=== PATIENT | male | born 1965 | race Caucasian/White ===

== ENCOUNTER 2017-08-30 17:21 | Observation (INO) | payer OTHER ==
--- NOTE | 2017-08-30 17:32 | PDOC ---
History of Present Illness - History of Present Illness Initial Comments: 08/30/17 17:54 The patient is a 51 year old male, with a significant past medical history of hyperlipidemia, who presents to the emergency department with erythematous right hand since Saturday. Patient states that he noticed that the dorsal side of his right hand became red and began to swell beginning on Saturday. He denies injury to the right hand. He does have a small blistered wound on his pinky finger that he admits to picking at. He came into the emergency room today because he noticed that the redness and swelling worsened. He did not make an appt to see his PCP. He states he is right hand dominant. He denies any recent fevers, chills, headache or dizziness. He denies any recent nausea, vomit, diarrhea.He denies any recent chest pain or shortness of breath. He denies any recent dysuria, frequency, urgency or hematuria. Allergies: NKDA Past surgical history: None reported. Social History: Former smoker. Primary Care Physician: Jase Lin <Halie Hager - Last Filed: 08/30/17 18:50> <Jennifer Prasad - Last Filed: 08/30/17 18:55> - General Chief Complaint: Redness To Affected Area Stated Complaint: REDNESS OF RIGHT HAND Time Seen by Provider: 08/30/17 17:31 Past History <Halie Hager - Last Filed: 08/30/17 18:50> <Jennifer Prasad - Last Filed: 08/30/17 18:55> - Past Medical History Allergies/Adverse Reactions: Allergies Allergy/AdvReac Type Severity Reaction Status Date / Time No Known Allergies Allergy Verified 08/30/17 17:39 Home Medications: Ambulatory Orders Gemfibrozil [Lopid] 600 mg PO BID 08/30/17 Simvastatin 20 mg PO DAILY 08/30/17 Review of Systems - Review of Systems Comments:: 08/30/17 17:54 GENERAL/CONSTITUTIONAL: No fever or chills. No weakness. HEAD, EYES, EARS, NOSE AND THROAT: No change in vision. No ear pain or discharge. No sore throat. GASTROINTESTINAL: No nausea, vomiting, diarrhea or constipation. GENITOURINARY: No dysuria, frequency, or change in urination. CARDIOVASCULAR: No chest pain or shortness of breath. RESPIRATORY: No cough, wheezing, or hemoptysis. MUSCULOSKELETAL: No joint or muscle swelling or pain. No neck or back pain. SKIN: + erythema to right hand and forearm. +swelling to right hand. + small blistered wound on pinky finger. NEUROLOGIC: No headache, vertigo, loss of consciousness, or change in strength/ sensation. ENDOCRINE: No increased thirst. No abnormal weight change. HEMATOLOGIC/LYMPHATIC: No anemia, easy bleeding, or history of blood clots. ALLERGIC/IMMUNOLOGIC: No hives or skin allergy. <Halie Hager - Last Filed: 08/30/17 18:50> *Physical Exam - Vital Signs Last Vital Signs Temp Pulse Resp BP Pulse Ox 97.7 F 88 15 134/78 99 08/30/17 17:27 08/30/17 17:27 08/30/17 17:27 08/30/17 17:27 08/30/17 17:27 - Physical Exam Comments: 08/30/17 17:54 GENERAL: Obese. Awake, alert, and fully oriented, in no acute distress HEAD: No signs of trauma EYES: PERRLA, EOMI, sclera anicteric, conjunctiva clear ENT: Auricles normal inspection, hearing grossly normal, nares patent, oropharynx clear without exudates. Moist mucosa NECK: Normal ROM, supple, no lymphadenopathy, JVD, or masses LUNGS: Breath sounds equal, clear to auscultation bilaterally. No wheezes, and no crackles HEART: Regular rate and rhythm, normal S1 and S2, no murmurs, rubs or gallops ABDOMEN: Soft, nontender, normoactive bowel sounds. No guarding, no rebound. No masses EXTREMITIES: Normal range of motion, no edema. No clubbing or cyanosis. No cords, erythema, or tenderness NEUROLOGICAL: Cranial nerves II through XII grossly intact. Normal speech, normal gait SKIN: Right hand erythema over dorsal aspect. Lymphangitic spread to right forearm of the way up. Small ulceration to the right 5th mcp without and purulent drainage. Right hand hot, tender, but full ROM. Brisk cap refill. Sensation intact. <Halie Hager - Last Filed: 08/30/17 18:50> Heart Score/ECG Review - ECG Intrepretation Comment:: 08/30/17 18:47 sinus at 82, nl axis, nl interval, no acute st/t wave findings <Jennifre Prasad - Last Filed: 08/30/17 18:55> ED Treatment Course - LABORATORY CBC & Chemistry Diagram: 08/30/17 17:50 08/30/17 17:50 <Halie Hager - Last Filed: 08/30/17 18:50> - LABORATORY CBC & Chemistry Diagram: 08/30/17 17:50 08/30/17 17:50 <Jennifer Prasad - Last Filed: 08/30/17 18:55> Medical Decision Making - Medical Decision Making 08/30/17 17:43 a/p: 51yo male with R hand cellulitis -redness since saturday now with lymphangitic spread -ulceration to MTP of pinky - crusted over, no purulent drainage -hot -labs -xray -iv abx -observation for repeat eval and iv abx 08/30/17 18:54 pt updated on labs and imaging. Pt pending lactate pt willing to stay for iv abx and observation microblog sent to the hospitalist awaiting call back from MUSIC COORDINATOR 08/30/17 18:55 pt will be signed out to the oncoming ED physician pending placement and accepting physician <Jennifer Prasad - Last Filed: 08/30/17 18:55> *DC/Admit/Observation/Transfer - Attestations Scribe Attestion: 08/30/17 17:55 Documentation prepared by Halie Hager, acting as certified medical coder for Jennifer Prasad DO. <Halie Hager - Last Filed: 08/30/17 18:50> - Attestations Physician Attestion: 08/30/17 17:32 I, Dr. Jennifer Prasad DO, attest that this document has been prepared under my direction and personally reviewed by me in its entirety. I further attest, that it accurately reflects all work, treatment, procedures and medical decision -making performed by me. <Jennifer Prasad - Last Filed: 08/30/17 18:55> Diagnosis at time of Disposition: Cellulitis of right hand - Discharge Dispostion Condition at time of disposition: Fair
[2017-08-30] MEDS ORDERED: DIPHTH,PERTUSS(ACELL),TET 0.5 ML DISP.SYRIN IM ONE (17:41)
[2017-08-30] MEDS ORDERED: SODIUM CHLORIDE 0.9% 1000 ML INFUS.BAG IV ONE (17:42)
[2017-08-30] MEDS ORDERED: CLINDAMYCIN 600MG PREMIX IVPB 600 MG/50 ML BAG IVPB ONE (17:42)
[2017-08-30] MEDS ORDERED: CLINDAMYCIN PHOSPHATE 600 MG/4 ML VIAL ONE (18:00)
[2017-08-30 18:09] LABS: BASOPHIL 3.3 % (0-2.0); EOSINOPHIL 1.1 % (0-4.5); MCH 31.1 pg (25.7-33.7); MEAN CELL VOLUME 91.2 fl (80-96); MEAN PLT VOLUME 9.8 fl (7.5-11.1); NEUTROPHILS 65.7 % (42.8-82.8); PLATELET COUNT 205 K/MM3 (134-434)
[2017-08-30 18:31] LABS: ALBUMIN 4.2 g/dl (3.5-5.0); ALK PHOS 63 U/L (32-92); ANION GAP 8 (8-16); BILIRUBIN,TOTAL 0.7 mg/dl (0.2-1.0); CALCIUM 9.1 mg/dl (8.4-10.2); CO2 25 mmol/L (22-28); CREATININE 0.8 mg/dl (0.6-1.3); GLUCOSE,RANDOM 130 mg/dl (74-106); SGOT/AST 15 U/L (10-42); SGPT/ALT 29 U/L (10-40); TOT PROT 6.7 g/dl (6.4-8.3)
[2017-08-30 21:00] VITALS: BMI 41.3
[2017-08-30] MEDS ORDERED: ACETAMINOPHEN 500 MG TABLET (FP) PO PRN (21:38)
--- NOTE | 2017-08-30 23:02 | HP ---
CHIEF COMPLAINT: Right hand pain, redness, swelling PCP: Jase Lin HISTORY OF PRESENT ILLNESS: This is a 51 year old male with a past medical history of hyperlipidemia who presented to the ED with a 5-7 day history of redness, pain and swelling to his right hand. He states that it started sometime [place] or over the weekend. Initially there was some swelling to the area above the 3rd and 4th metacarpal space but it spread towards the ulnar aspect of the hand and a blister appeared on the side of the hand. The swelling and redness continued to get worse and finally today the pain became unbearable and he presented to the ED. ER course was notable for: (1) WBC 18.0 Recent Travel: pt denies PAST MEDICAL HISTORY: hyperlipidemia PAST SURGICAL HISTORY: appendectomy 2012 Social History: Smoking: pt denies Alcohol: pt denies Drugs: pt denies Family History: mother alive and well, no medical problems father unk no siblings 1 child with epilepsy 1 child healthy Allergies No Known Allergies Allergy (Verified 08/30/17 17:39) HOME MEDICATIONS: 3 Medication Instructions Recorded Gemfibrozil [Lopid] 600 mg PO BID 08/30/17 Simvastatin 20 mg PO DAILY 08/30/17 REVIEW OF SYSTEMS CONSTITUTIONAL: Absent: fever, chills, diaphoresis, generalized weakness, malaise, loss of appetite, weight change HEENT: Absent: rhinorrhea, nasal congestion, throat pain, throat swelling, difficulty swallowing, mouth swelling, ear pain, eye pain, visual changes CARDIOVASCULAR: Absent: chest pain, syncope, palpitations, irregular heart rate, lightheadedness , peripheral edema RESPIRATORY: Absent: cough, shortness of breath, dyspnea with exertion, orthopnea, wheezing, stridor, hemoptysis GASTROINTESTINAL: Absent: abdominal pain, abdominal distension, nausea, vomiting, diarrhea, constipation, melena, hematochezia GENITOURINARY: Absent: dysuria, frequency, urgency, hesitancy, hematuria, flank pain, genital pain MUSCULOSKELETAL: Absent: myalgia, arthralgia, joint swelling, back pain, neck pain SKIN: Present: Pain/swelling/redness to right hand Absent: rash, itching, pallor HEMATOLOGIC/IMMUNOLOGIC: Absent: easy bleeding, easy bruising, lymphadenopathy, frequent infections ENDOCRINE: Absent: unexplained weight gain, unexplained weight loss, heat intolerance, cold intolerance NEUROLOGIC: Absent: headache, focal weakness or paresthesias, dizziness, unsteady gait, seizure, mental status changes, bladder or bowel incontinence PSYCHIATRIC: Absent: anxiety, depression, suicidal or homicidal ideation, hallucinations. PHYSICAL EXAMINATION Vital Signs - 24 hr 3 08/30/17 08/30/17 08/30/17 17:27 20:27 20:51 Temperature 97.7 F 97.7 F 97.9 F Pulse Rate 88 78 81 Respiratory 15 15 20 Rate Blood Pressure 134/78 130/68 126/73 O2 Sat by Pulse 99 100 Oximetry (%) GENERAL: Awake, alert, and fully oriented, in no acute distress. HEAD: Normal with no signs of trauma. EYES: Pupils equal, round and reactive to light, extraocular movements intact, sclera anicteric, conjunctiva clear. No lid lag. EARS, NOSE, THROAT: Ears normal, nares patent, oropharynx clear without exudates. Moist mucous membranes. NECK: Normal range of motion, supple without lymphadenopathy, JVD, or masses. LUNGS: Breath sounds equal, clear to auscultation bilaterally. No wheezes, and no crackles. No accessory muscle use. HEART: Regular rate and rhythm, normal S1 and S2 without murmur, rub or gallop. ABDOMEN: Soft, nontender, not distended, normoactive bowel sounds, no guarding, no rebound, no masses. No hepatomegaly or splenomegaly. MUSCULOSKELETAL: Normal range of motion at all joints. No bony deformities or tenderness. No CVA tenderness. UPPER EXTREMITIES: 2+ pulses, warm, well-perfused. No cyanosis. No clubbing. No peripheral edema. LOWER EXTREMITIES: 2+ pulses, warm, well-perfused. No calf tenderness. No peripheral edema. NEUROLOGICAL: Cranial nerves II-XII intact. Normal speech. Normal gait. PSYCHIATRIC: Cooperative. Good eye contact. Appropriate mood and affect. SKIN: Warm, dry, normal turgor, no rashes, normal capillary refill. right hand with generalized swelling and erythema, erythema does not appear to be tracking up arm proximally any longer and pt believes it has improved. + blister to ulnar side of hand, + oozing serosanguinous discharge. Laboratory Results - last 24 hr 3 08/30/17 08/30/17 08/30/17 17:50 17:50 17:50 WBC 18.0 H RBC 5.47 Hgb 17.0 H Hct 49.9 H MCV 91.2 MCH 31.1 MCHC 34.0 RDW 13.0 Plt Count 205 MPV 9.8 Neutrophils % 65.7 Lymphocytes % 22.9 Monocytes % 7.0 Eosinophils % 1.1 Basophils % 3.3 H Sodium 136 Potassium 3.9 Chloride 103 Carbon Dioxide 25 Anion Gap 8 BUN 21 H Creatinine 0.8 Creat Clearance w eGFR > 60 Random Glucose 130 H Lactic Acid 1.4 Calcium 9.1 Total Bilirubin 0.7 AST 15 ALT 29 Alkaline Phosphatase 63 Total Protein 6.7 Albumin 4.2 Radiology Reports hand xray without obvious free air, foreign body or bony deformity, official read pending chest xray without obvious infiltrate or effusion, official read pending ASSESSMENT/PLAN: 51yM with PMH HLD presented with cellulits R hand. Cellulitis R hand - cont clindamycin 600mg Q6h - bactroban and DPD to open sore - repeat CBC in am HLD - cont home lopid, home zocor changed to formulary lipitor DVT PPX - chemoprophylaxis deferred as expected LOS <48h FEN - pt tolerating po - BMP in am - regular diet Dispo: pt currently requires inpatient monitoring for management of his emergent condition. Visit type - Emergency Visit Emergency Visit: Yes ED Registration Date: 08/30/17 Care time: The patient presented to the Emergency Department on the above date and was hospitalized for further evaluation of their emergent condition. - New Patient This patient is new to me today: Yes Date on this admission: 08/30/17 - Critical Care Critical Care patient: No
[2017-08-30] MEDS: IBUPROFEN 600 MG TABLET (FP) PO PRN (23:19)
[2017-08-30] MEDS: CLINDAMYCIN 600MG PREMIX IVPB 600 MG/50 ML BAG IVPB SCH (23:49)
[2017-08-31] MEDS: CLINDAMYCIN 600MG PREMIX IVPB 600 MG/50 ML BAG IVPB SCH ×4 (06:16→23:13)
[2017-08-31 08:22] LABS: BASOPHIL 0.4 % (0-2.0); EOSINOPHIL 2.1 % (0-4.5); MCH 30.6 pg (25.7-33.7); MCHC 33.4 g/dl (32.0-35.9); MEAN CELL VOLUME 91.6 fl (80-96); MEAN PLT VOLUME 9.6 fl (7.5-11.1); NEUTROPHILS 56.6 % (42.8-82.8); PLATELET COUNT 153 K/MM3 (134-434); RDW 13.3 % (11.9-15.9); WHITE BLOOD COUNT 10.9 K/mm3 (4.0-10.8)
[2017-08-31 08:55] LABS: ANION GAP 5 (8-16); CALCIUM 8.7 mg/dl (8.4-10.2); CO2 25 mmol/L (22-28); CREATININE 0.8 mg/dl (0.6-1.3); GLUCOSE,RANDOM 112 mg/dl (74-106); PHOSPHOROUS 4.5 mg/dl (2.5-4.6)
[2017-08-31] MEDS ORDERED: PT OWN MED DRAWER 7, Y5N ONE ×2 (10:17→21:17)
--- NOTE | 2017-08-31 10:21 | PN ---
Physical Exam: SUBJECTIVE: Patient seen and examined at the bedside. He state that his hand is still swollen and not much improved since admission. He has cats but denies any animal bite. He is unsure why or how his hands became swollen. Has 5/10 pain on right hand on exam. OBJECTIVE: WBC improving, denies any trauma/animal bites Vital Signs Period Temp Pulse Resp BP Sys/Robles Pulse Ox Last 24 Hr 97.7 F-98.8 F 73-88 15-20 121-134/68-78 99-100 GENERAL: The patient is awake, alert, and fully oriented, in no acute distress. HEAD: Normal with no signs of trauma. EYES: PERRL, extraocular movements intact, sclera anicteric, conjunctiva clear. No ptosis. ENT: Ears normal, nares patent, oropharynx clear without exudates, moist mucous membranes. NECK: Trachea midline, full range of motion, supple. LUNGS: Breath sounds equal, clear to auscultation bilaterally, no wheezes HEART: Regular rate and rhythm ABDOMEN: Soft, obese abdomen, no abdominal pain, + bowel sounds EXTREMITIES: Right hand cellulitis, Painful, edema on entire hand with minimal streaking on anterior aspect of hand, limited ROM 2/2 to pain NEUROLOGICAL:Normal speech, gait not observed. PSYCH: Normal mood, normal affect. Laboratory Results - last 24 hr 08/30/17 08/30/17 08/30/17 17:50 17:50 17:50 WBC 18.0 H RBC 5.47 Hgb 17.0 H Hct 49.9 H MCV 91.2 MCH 31.1 MCHC 34.0 RDW 13.0 Plt Count 205 MPV 9.8 Neutrophils % 65.7 Lymphocytes % 22.9 Monocytes % 7.0 Eosinophils % 1.1 Basophils % 3.3 H Sodium 136 Potassium 3.9 Chloride 103 Carbon Dioxide 25 Anion Gap 8 BUN 21 H Creatinine 0.8 Creat Clearance w eGFR > 60 Random Glucose 130 H Lactic Acid 1.4 Calcium 9.1 Phosphorus Magnesium Total Bilirubin 0.7 AST 15 ALT 29 Alkaline Phosphatase 63 Total Protein 6.7 Albumin 4.2 08/31/17 08/31/17 07:23 07:23 WBC 10.9 H D RBC 5.08 Hgb 15.6 Hct 46.6 MCV 91.6 MCH 30.6 MCHC 33.4 RDW 13.3 Plt Count 153 D MPV 9.6 Neutrophils % 56.6 Lymphocytes % 33.8 D Monocytes % 7.1 Eosinophils % 2.1 D Basophils % 0.4 Sodium 137 Potassium 4.4 Chloride 107 Carbon Dioxide 25 Anion Gap 5 L BUN 23 H Creatinine 0.8 Creat Clearance w eGFR Random Glucose 112 H Lactic Acid Calcium 8.7 Phosphorus 4.5 Magnesium 2.0 Total Bilirubin AST ALT Alkaline Phosphatase Total Protein Albumin Active Medications Generic Name Dose Route Start Last Admin Trade Name Freq PRN Reason Stop Dose Admin Acetaminophen 1,000 mg 08/30/17 21:38 Tylenol - PO Q6H PRN FEVER OR PAIN Atorvastatin Calcium 10 mg 08/31/17 22:00 Lipitor - PO HS ANNA Gemfibrozil 600 mg 08/31/17 10:00 Lopid - PO BID ANNA Clindamycin Phosphate 600 mg in 50 mls @ 100 mls/hr 08/31/17 00:00 08/31/17 06:16 Cleocin 600 Mg Premix Ivpb - IVPB 100 mls/hr Q6H ANNA Administration Ibuprofen 600 mg 08/30/17 22:49 08/30/17 23:19 Motrin - PO 600 mg Q6H PRN Administration FEVER Mupirocin 1 applic 08/31/17 10:00 Bactroban 2% Ointment - TP BID ANNA ASSESSMENT/PLAN: Patient is a 51 year old male with a significant past medical history of hyperlipidemia. He presented to the ER on 08/30/2017 with c/o of redness, swelling and pain to his right hand for approximately 1 week. He states that initially he had some swelling above the 3rd and 4th metacarpal space but it his entire hand became more swollen and painful and a blister appeared on the right side of his hand. His hand pain became worse which prompted him to come into the ER. Imaging: Right hand xray: some swelling seen on imaging, no fracture or subluxation. Loss of bone density. No foreign body or soft tissue air. ID: Right Hand Cellulitis, acute Unknown cause ROM limited, still having pain, no streaking noted Patient states symptoms not yet improved WBC 18>10 Denies animal bites, has a cat a home Denies any trauma Hand xray as above On Clindamycin q6 No drainage of hand noted Plan: Elevated hand above heart level Manage pain with Motrin q6, Tylenol If streaking or if no improvement, consider switching antibiotics ID consulted Blood cultures ordered Monitor labs, pain, vitals F.E.N. Fluids: tolerating PO Electrolytes: monitor Nutrition: regular diet Prophylaxis: DVT: ambulatory GI: deferred Disposition: full code. Visit type - Emergency Visit Emergency Visit: Yes ED Registration Date: 08/30/17 Care time: The patient presented to the Emergency Department on the above date and was hospitalized for further evaluation of their emergent condition. - New Patient This patient is new to me today: Yes Date on this admission: 08/31/17 - Critical Care Critical Care patient: No - Discharge Referral Referred to [facility] No
[2017-08-31] MEDS: IBUPROFEN 600 MG TABLET (FP) PO PRN ×2 (10:23→19:24)
[2017-08-31] MEDS: GEMFIBROZIL 600 MG TABLET (FP) PO SCH ×2 (10:23→21:25)
[2017-08-31] MEDS: LACTOBACILLUS ACIDOPHILUS 1 EACH TAB (FP) PO SCH (15:00)
--- NOTE | 2017-08-31 15:02 | PN ---
Progress Note (short form) - Note Progress Note: ID consult dictated a/p hand cellulitis he also has several 1 cm subcutaneous abscess on his abdomen he describes these as chronic and recurrent obesity clindamycin seems to be working-would continue would add probiotic check [id number] ?outpt eval for [facility] d/w hospitalist Problem List - Problems (1) Cellulitis of right hand Code(s): L03.113 - CELLULITIS OF RIGHT UPPER LIMB (2) Obesity Code(s): E66.9 - OBESITY, UNSPECIFIED
[2017-08-31] MEDS ORDERED: IBUPROFEN 600 MG TABLET (FP) PO ONE (19:18)
[2017-08-31] MEDS: MUPIROCIN 2% TOPICAL OINTMENT 22 GM TUBE TP SCH ×2 (19:25→21:24)
[2017-08-31] MEDS: ATORVASTATIN CA 10 MG TABLET (FP) PO SCH (21:25)
[2017-09-01] MEDS: CLINDAMYCIN 600MG PREMIX IVPB 600 MG/50 ML BAG IVPB SCH ×4 (06:10→23:28)
[2017-09-01] MEDS ORDERED: PT OWN MED DRAWER 7, Y5N ONE ×2 (09:11→21:06)
[2017-09-01 09:30] LABS: BASOPHIL 0.2 % (0-2.0); EOSINOPHIL 2.8 % (0-4.5); MCH 30.9 pg (25.7-33.7); MCHC 33.2 g/dl (32.0-35.9); MEAN CELL VOLUME 93.1 fl (80-96); MEAN PLT VOLUME 9.6 fl (7.5-11.1); NEUTROPHILS 64.7 % (42.8-82.8); PLATELET COUNT 150 K/MM3 (134-434); RDW 13.4 % (11.9-15.9); WHITE BLOOD COUNT 9.9 K/mm3 (4.0-10.8)
[2017-09-01 09:31] LABS: ALBUMIN 3.6 g/dl (3.5-5.0); ALK PHOS 55 U/L (32-92); ANION GAP 10 (8-16); BILIRUBIN,TOTAL 0.8 mg/dl (0.2-1.0); CALCIUM 8.7 mg/dl (8.4-10.2); CO2 25 mmol/L (22-28); CREATININE 0.8 mg/dl (0.6-1.3); GLUCOSE,RANDOM 100 mg/dl (74-106); SGOT/AST 22 U/L (10-42); SGPT/ALT 39 U/L (10-40); TOT PROT 5.9 g/dl (6.4-8.3)
[2017-09-01] MEDS: LACTOBACILLUS ACIDOPHILUS 1 EACH TAB (FP) PO SCH (10:20)
[2017-09-01] MEDS: GEMFIBROZIL 600 MG TABLET (FP) PO SCH ×2 (10:20→21:13)
[2017-09-01] MEDS: MUPIROCIN 2% TOPICAL OINTMENT 22 GM TUBE TP SCH ×2 (10:21→21:13)
--- NOTE | 2017-09-01 10:40 | PN ---
Physical Exam: SUBJECTIVE: Patient seen and examined at the bedside. He states that he feels his hand edema is the same. OBJECTIVE: hmga1c pending Clinically the hand edema appears to be improving, ROM with some improvement Encouraged hand excercises as tolerated, elevation encouraged WBC 9.9, afebrile, vitals stable Vital Signs Period Temp Pulse Resp BP Sys/Robles Pulse Ox Last 24 Hr 97.6 F-98.0 F 74-87 16-18 114-133/73-81 97-99 GENERAL: The patient is awake, alert, and fully oriented, in no acute distress. HEAD: Normal with no signs of trauma. EYES: PERRL, extraocular movements intact, sclera anicteric, conjunctiva clear. No ptosis. ENT: Ears normal, nares patent, oropharynx clear without exudates, moist mucous membranes. NECK: Trachea midline, full range of motion, supple. LUNGS: Breath sounds equal, clear to auscultation bilaterally, no wheezes HEART: Regular rate and rhythm ABDOMEN: Soft, obese abdomen, no abdominal pain, + bowel sounds. <1cm abscess on right lower abdomen, pt states that these are chronic EXTREMITIES: Right hand cellulitis, less painful, improving edema on hand, no streaking on anterior aspect of hand or anywhere on right arm, improving ROM multiple non drainage small <1cm abscess on right lower abdomen, pt states that these are chronic NEUROLOGICAL:Normal speech, gait not observed. PSYCH: Normal mood, normal affect. Laboratory Results - last 24 hr 09/01/17 09/01/17 08:00 08:00 WBC 9.9 RBC 5.26 Hgb 16.3 Hct 49.0 MCV 93.1 MCH 30.9 MCHC 33.2 RDW 13.4 Plt Count 150 MPV 9.6 Neutrophils % 64.7 Lymphocytes % 24.6 D Monocytes % 7.7 Eosinophils % 2.8 Basophils % 0.2 Sodium 137 Potassium 4.0 Chloride 102 Carbon Dioxide 25 Anion Gap 10 BUN 19 H Creatinine 0.8 Creat Clearance w eGFR > 60 Random Glucose 100 Calcium 8.7 Total Bilirubin 0.8 AST 22 D ALT 39 D Alkaline Phosphatase 55 Total Protein 5.9 L Albumin 3.6 Active Medications Generic Name Dose Route Start Last Admin Trade Name Freq PRN Reason Stop Dose Admin Acetaminophen 1,000 mg 08/30/17 21:38 Tylenol - PO Q6H PRN FEVER OR PAIN Atorvastatin Calcium 10 mg 08/31/17 22:00 08/31/17 21:25 Lipitor - PO 10 mg HS ANNA Administration Gemfibrozil 600 mg 08/31/17 10:00 09/01/17 10:20 Lopid - PO 600 mg BID ANNA Administration Clindamycin Phosphate 600 mg in 50 mls @ 100 mls/hr 08/31/17 00:00 09/01/17 06:10 Cleocin 600 Mg Premix Ivpb - IVPB 100 mls/hr Q6H ANNA Administration Ibuprofen 600 mg 08/30/17 22:49 08/31/17 19:24 Motrin - PO 600 mg Q6H PRN Administration FEVER Lactobacillus Acidophilus 1 tab 08/31/17 15:00 09/01/17 10:20 Bacid - PO 1 tab DAILY ANNA Administration Mupirocin 1 applic 08/31/17 10:00 09/01/17 10:21 Bactroban 2% Ointment - TP 1 applic BID ANNA Administration ASSESSMENT/PLAN: Patient is a 51 year old male with a significant past medical history of hyperlipidemia. He presented to the ER on 08/30/2017 with c/o of redness, swelling and pain to his right hand for approximately 1 week. He states that initially he had some swelling above the 3rd and 4th metacarpal space but it his entire hand became more swollen and painful and a blister appeared on the right side of his hand. His hand pain became worse which prompted him to come into the ER. Imaging: Right hand xray: some swelling seen on imaging, no fracture or subluxation. Loss of bone density. No foreign body or soft tissue air. ID: Right Hand Cellulitis, improving Unknown cause WBC now 9.9, afebrile, less edema noted on hand, improving MEGHA, no streaking, vitals are stable WBC 18>9.9 Denies animal bites, has a cat a home Denies any trauma Hand xray as above On Clindamycin q6 IV No drainage of hand noted Plan: Elevated hand above heart level Manage pain with Motrin q6, Tylenol Hand edema improving on exam ID following Blood cultures ngtd Monitor labs, pain, vitals Endocrine: Rule out diabetes, hmga1c pending F.E.N. Fluids: tolerating PO Electrolytes: monitor Nutrition: regular diet Prophylaxis: DVT: ambulatory GI: deferred Disposition: full code. Visit type - Emergency Visit Emergency Visit: Yes ED Registration Date: 08/30/17 Care time: The patient presented to the Emergency Department on the above date and was hospitalized for further evaluation of their emergent condition. - New Patient This patient is new to me today: No - Critical Care Critical Care patient: No - Discharge Referral Referred to [facility] No
--- NOTE | 2017-09-01 12:37 | PN ---
Progress Note (short form) - Note Progress Note: hand about the same still some swelling and pain with closing the hand Vital Signs Period Temp Pulse Resp BP Sys/Robles Pulse Ox Last 24 Hr 97.6 F-98.0 F 74-87 16-18 114-133/73-81 97-99 now some fluctuance at the right lateral aspect- site of scab erythema and swelling of hand about the same forearm nontender, no erythema CBC, BMP 09/01/17 08:00 09/01/17 08:00 Laboratory Tests 09/01/17 08:00 Hemoglobin A1c % 6.9 H Microbiology 08/31/17 09:46 Blood - Peripheral Venous Blood Culture - Preliminary NO GROWTH OBTAINED AFTER 24 HOURS, INCUBATION TO CONTINUE FOR 4 DAYS. 08/31/17 09:46 Blood - Peripheral Venous Blood Culture - Preliminary NO GROWTH OBTAINED AFTER 24 HOURS, INCUBATION TO CONTINUE FOR 4 DAYS. a/p hand cellulitis he also has several 1 cm subcutaneous abscess on his abdomen he describes these as chronic and recurrent obesity consider hand surgery evaluation - ?small abscess under the scab continue clindamycin hand elevation Problem List - Problems (1) Cellulitis of right hand Code(s): L03.113 - CELLULITIS OF RIGHT UPPER LIMB (2) Obesity Code(s): E66.9 - OBESITY, UNSPECIFIED
--- NOTE | 2017-09-01 13:45 | CONSULT ---
Consult Consult Specialty:: Hand surgery Referred by:: Carolee Carreno Reason for Consultation:: Right hand pain and swelling - History of Present Illness Chief Complaint: Right hand pain and swelling History of Present Illness: 51 yo male Right hand dominant, PMH obesity, previous cutaneous abscess, presented to the ED with worsening pain and swelling in the right hand over the course of 7 days. He reports no trauma in hand. He noted the pain and redness appear spontaneously without a break in the skin. Pain, redness and swelling in the webspace between the middle and ring fingers, it spread towards the ulnar fingers an the same joints. When it began to extend into the wrist and forearm and become unbearable. We were asked to assess given the degree of improvement. - History Source History Provided By: Patient Limitations to Obtaining History: No Limitations - Past Medical History Dermatology: Yes: Cellulitis (h/o of MRSA cellulitis ) - Alcohol/Substance Use Hx Alcohol Use: Yes (RARE) - Smoking History Smoking history: Former smoker Have you smoked in the past 12 months: No If you are a former smoker, when did you quit?: 2013 - Social History Usual Living Arrangement: With Spouse Home Medications - Allergies Allergies/Adverse Reactions: Allergies Allergy/AdvReac Type Severity Reaction Status Date / Time No Known Allergies Allergy Verified 08/30/17 17:39 - Home Medications Home Medications: Ambulatory Orders Gemfibrozil [Lopid] 600 mg PO BID 08/30/17 Simvastatin 20 mg PO DAILY 08/30/17 Review of Systems - Review of Systems Constitutional: denies: Chills, Fever Eyes: denies: Blurred Vision, Recent Change in Vision HENT: denies: Hearing Loss, Nasal Congestion Neck: denies: Lumps, Swollen Glands Cardiovascular: denies: Chest Pain, Shortness of Breath Respiratory: denies: Cough, SOB Gastrointestinal: denies: Abdominal Pain, Bloating Genitourinary: denies: Frequency, Urgency Musculoskeletal: denies: Back Pain, Extremity Pain Integumentary: reports: Other (previous scar from drained cutaneous abscesses abdomen). denies: Change in Color Neurological: denies: Dizziness, Weakness Endocrine: denies: Unexplained Weight Gain, Unexplained Weight Loss Hematology/Lymphatic: denies: Easily Bruised, Excessive Bleeding Psychiatric: denies: Altered Sleep Pattern, Anxiety Pain Intensity: 3 Physical Exam Vital Signs: Vital Signs Temperature 98.0 F 11/19/17 06:00 Pulse Rate 74 09/01/17 06:00 Respiratory Rate 18 09/01/17 08:55 Blood Pressure 114/73 09/01/17 06:00 O2 Sat by Pulse Oximetry (%) 97 09/01/17 08:55 Vital Signs Period Temp Pulse Resp BP Sys/Robles Pulse Ox Last 24 Hr 97.6 F-98.0 F 74-87 16-19 106-133/61-81 97-98 Constitutional: Yes: No Distress, Calm, Obese Eyes: Yes: Conjunctiva Clear, EOM Intact HENT: Yes: Atraumatic, Normocephalic Neck: Yes: Supple, Trachea Midline Cardiovascular: Yes: Regular Rate and Rhythm, S1, S2 Respiratory: Yes: Regular, CTA Bilaterally Gastrointestinal: Yes: Normal Bowel Sounds, Soft. No: Other (healing scar with hyperemia 1cm, panicultitis) Renal/: No: CVA Tenderness - Left, CVA Tenderness - Right Musculoskeletal: Yes: Joint Stiffness (right hand 4th and 5th MCP joint), Joint Swelling. No: Muscle Pain, Muscle Weakness Extremities: No: Cool, Cyanosis Edema: No Peripheral Pulses WNL: Yes (2+ bilateral radial ) Integumentary: Yes: Erythema (minimal dorsal apsect of right ring and small over MCP joints, marked with purple marker), Other (open punctum with a scab right small finger <1cm lateral aspect dorsally of the MCP joint) Wound/Incision: Yes: Clean/Dry, Open to air, Reddened. 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 08/31/17 09:46 Blood - Peripheral Venous Blood Culture - Preliminary NO GROWTH OBTAINED AFTER 24 HOURS, INCUBATION TO CONTINUE FOR 4 DAYS. Abnormal Lab Results 09/01/17 09/01/17 08:00 08:00 BUN 19 H Hemoglobin A1c % 6.9 H Total Protein 5.9 L Imaging - Results X-ray: Report Reviewed, Image Reviewed (right hand 3 viwer no fracture or dislocation, no subcutaneous gas or foreign body seen) Problem List - Problems (1) Cellulitis of right hand Assessment/Plan: 51 yo male with cellulitis of right hand possible abscess (drained spontaneously ) and associated extensor tendonitis Continue empiric IV antibiotics per ID Elevation of right hand in a stockinette while in bed and while sleeping MRI right hand R/O joint effusion or subcutaneous collection adequate analgesia PT/OT evaluation for home exercise regimen active and passive range of motion Code(s): L03.113 - CELLULITIS OF RIGHT UPPER LIMB (2) Tendinitis of extensor tendon of right hand Assessment/Plan: PT/OT for ROM, progressing to strengthening Code(s): M77.8 - OTHER ENTHESOPATHIES, NOT ELSEWHERE CLASSIFIED (3) Cutaneous abscess of right hand Assessment/Plan: MRI of right hand, to ensure there is no drainable cutaneous collection or joint effusion Code(s): L02.511 - CUTANEOUS ABSCESS OF RIGHT HAND (4) Obesity Code(s): E66.9 - OBESITY, UNSPECIFIED (5) Hyperlipidemia Code(s): E78.5 - HYPERLIPIDEMIA, UNSPECIFIED
--- NOTE | 2017-09-01 17:48 | EKG ---
Test Reason : Blood Pressure : / mmHG Vent. Rate : 082 BPM Atrial Rate : 082 BPM P-R Int : 132 ms QRS Dur : 086 ms QT Int : 360 ms P-R-T Axes : 042 -05 025 degrees QTc Int : 420 ms NORMAL SINUS RHYTHM NORMAL ECG NO PREVIOUS ECGS AVAILABLE Confirmed by JOSE ALEJANDRO BRAVO MD ([id number]) on 09/01/2017 5:47:54 PM Referred By: MD WEI Confirmed By:JOSE ALEJANDRO BRAVO MD
[2017-09-01] MEDS ORDERED: IBUPROFEN 600 MG TABLET (FP) PO ONE (19:32)
[2017-09-01] MEDS: IBUPROFEN 600 MG TABLET (FP) PO PRN (19:35)
[2017-09-01] MEDS: ATORVASTATIN CA 10 MG TABLET (FP) PO SCH (21:13)
--- NOTE | 2017-09-01 21:30 | CONS ---
DATE OF CONSULTATION: 08/31/2017 REQUESTED BY: Hospitalist Service. HISTORY OF PRESENT ILLNESS: This is a 51-year-old man who presented to the emergency room yesterday evening with a 1-week history of swelling of his right hand. This had started the previous week. He has no idea how it became to swell. He denies any injuries. He denies any cuts to his hand from anything. He denies any pet scratches or pet bites. He denies any fevers or chills. He presented with these complaints. On examination in the emergency room he had erythema over the dorsal aspect with lymphangitic spread to the right forearm, three-quarters of the way up the arm was marked. He had a white count of 18,000 and was started on clindamycin after cultures were drawn. I am asked to see him today for further evaluation. He is currently awake and alert. He does say that the erythema of the forearm is improved. He still complains of swelling of his hand. PAST MEDICAL HISTORY: Notable for hyperlipidemia. He has had multiple fractures of all of his fingers as well as one of his wrists in the past. PAST SURGICAL HISTORY: Notable for appendectomy as well. ALLERGIES: No known drug allergies. MEDICATIONS: Include Lopid and simvastatin. PRIMARY CARE PROVIDER: King Hartman MD FAMILY HISTORY: He denies anything that could be relevant. SOCIAL HISTORY: He is . He lives with his family. He does not want to give any further details. Former smoker. He works for a [employer] here in [place]. He lives in [facility]. REVIEW OF SYSTEMS: There are no fevers or chills. There is no nausea or vomiting, diarrhea or dysuria. He has a pet cat and several dogs at home. PHYSICAL EXAMINATION: General: He is awake and alert. Vital signs: Temperature is 97.8. He weighs 287 pounds. His pulse is 75. Blood pressure 124/76. Respiratory rate 18. He is saturating 99%. HEENT: He is normocephalic. His eyes are anicteric. Neck: Supple. Lungs: Clear to auscultation. Heart: Regular rate and rhythm. Abdomen: Protuberant, nontender. Extremities: Lower extremities are without edema. His right hand is notable for diffuse erythema of the hand. He has this small encrusted lesion on the lateral aspect of his right hand. He is not sure how he got it. The marked areas on his forearm are now without any erythema. He has no axillary adenopathy. Skin: Examination is notable for multiple lesions on his abdomen, 2 of which are small, subcutaneous, partially healing abscesses he reports, but he gets chronic abscesses frequently. He has multiple prior scars on his abdomen and thighs. IN SUMMARY: This is a 51-year-old man with hand cellulitis. He also has several 1-cm subcutaneous abscesses on his abdomen. I suspect this is MRSA. Clindamycin seems to be working, so I would continue it at this time. I would add a probiotic. We will check a hemoglobin A1c and consider outpatient evaluation for possible obstructive sleep apnea. The case was discussed with the hospitalist. I spoke with the patient as well regarding the above with elevated hand for now. JENNI VÁSQUEZ M.D. [id number]
[2017-09-02] MEDS: CLINDAMYCIN 600MG PREMIX IVPB 600 MG/50 ML BAG IVPB SCH ×2 (06:01→11:27)
--- NOTE | 2017-09-02 07:13 | PN ---
Progress Note, Physician Chief Complaint: right hand pain and swelling History of Present Illness: 51 yo male Right hand dominant, PMH right hand fractures 4th and 5th metacarpals treated with a cast 2 years ago, obesity, previous cutaneous abscess , presented with worsening pain and swelling in the right hand, now redness is improved, swelling is reduced, and MRI is pending for this morning - Current Medication List Current Medications: Active Medications Acetaminophen (Tylenol -) 1,000 mg PO Q6H PRN PRN Reason: FEVER OR PAIN Atorvastatin Calcium (Lipitor -) 10 mg PO HS [facility] Last Admin: 09/01/17 21:13 Dose: 10 mg Gemfibrozil (Lopid -) 600 mg PO BID [facility] Last Admin: 09/01/17 21:13 Dose: 600 mg Clindamycin Phosphate (Cleocin 600 Mg Premix Ivpb -) 600 mg in 50 mls @ 100 mls /hr IVPB Q6H [facility] Last Admin: 09/02/17 06:01 Dose: 100 mls/hr Ibuprofen (Motrin -) 600 mg PO Q6H PRN PRN Reason: FEVER Last Admin: 09/01/17 19:35 Dose: 600 mg Lactobacillus Acidophilus (Bacid -) 1 tab PO DAILY [facility] Last Admin: 09/01/17 10:20 Dose: 1 tab Mupirocin (Bactroban 2% Ointment -) 1 applic TP BID [facility] Last Admin: 09/01/17 21:13 Dose: 1 applic - Objective Vital Signs: Vital Signs Temperature 97.6 F 09/01/17 22:00 Pulse Rate 84 09/01/17 22:00 Respiratory Rate 16 09/02/17 00:00 Blood Pressure 110/56 09/01/17 22:00 O2 Sat by Pulse Oximetry (%) 99 09/02/17 00:00 Vital Signs Period Temp Pulse Resp BP Sys/Robles Pulse Ox Last 24 Hr 97.6 F-98.0 F 78-84 16-19 106-110/56-61 97-99 Constitutional: Yes: No Distress, Calm, Obese Eyes: Yes: Conjunctiva Clear, EOM Intact HENT: Yes: Atraumatic, Normocephalic Neck: Yes: Supple, Trachea Midline Cardiovascular: Yes: Regular Rate and Rhythm, S1, S2. No: Murmur Respiratory: Yes: Regular, CTA Bilaterally Gastrointestinal: Yes: Normal Bowel Sounds, Soft Genitourinary: No: CVA Tenderness - Left, CVA Tenderness - Right Musculoskeletal: Yes: Joint Stiffness (right hand 4th and 5th MCP joing), Joint Swelling (tender swelling of 5th MCP, and adjacent web space) Edema: No Peripheral Pulses WNL: Yes Peripheral Pulses: Left Radial: 2+, Right Radial: 2+ Integumentary: Yes: Erythema (minimal erythem of 5th MCP) Wound/Incision: Yes: Clean/Dry, Dressing Dry and Intact, Reddened (over 5th MCP) , Other (tender but no fluctuance). No: Draining Neurological: Yes: Alert, Oriented Psychiatric: Yes: Alert, Oriented Labs: CBC, BMP 09/01/17 08:00 09/01/17 08:00 Microbiology 08/31/17 09:46 Blood - Peripheral Venous Blood Culture - Preliminary NO GROWTH OBTAINED AFTER 24 HOURS, INCUBATION TO CONTINUE FOR 4 DAYS. 08/31/17 09:46 Blood - Peripheral Venous Blood Culture - Preliminary NO GROWTH OBTAINED AFTER 24 HOURS, INCUBATION TO CONTINUE FOR 4 DAYS. - ....Imaging MRI: Report Reviewed (no osteo, edema no collection), Image Reviewed (No drainable collection seen on MRI) Problem List - Problems (1) Cellulitis of right hand Assessment/Plan: 51 yo male with cellulitis of right hand possible abscess (drained spontaneously ) and associated extensor tendonitis Continue empiric IV antibiotics per ID Elevation of right hand in a stockinette while in bed and while sleeping adequate analgesia seen by PT/OT evaluation for home exercise regimen active and passive range of motion No specific dressing is needed MRI right hand - no drainable collection He can be discharged if MRI shows no collection f/u with Dr. Alvarez in two weeks Code(s): L03.113 - CELLULITIS OF RIGHT UPPER LIMB (2) Tendinitis of extensor tendon of right hand Assessment/Plan: 2 years earlier he had a fracture of the 4th and 5th MC treated with as cast, has had intermittent symptoms of tendonitis seen by PT/OT for ROM, progressing to strengthening home regimen Code(s): M77.8 - OTHER ENTHESOPATHIES, NOT ELSEWHERE CLASSIFIED (3) Cutaneous abscess of right hand Assessment/Plan: f/u MRI of right hand and open of there is a drainable cutaneous collection or joint effusion Code(s): L02.511 - CUTANEOUS ABSCESS OF RIGHT HAND (4) Obesity Code(s): E66.9 - OBESITY, UNSPECIFIED Qualifiers: Obesity type: due to excess calories Serious obesity comorbidity presence: unspecified whether serious comorbidity present Body mass index: BMI 39.0- 39.9 (5) Hyperlipidemia Code(s): E78.5 - HYPERLIPIDEMIA, UNSPECIFIED
--- NOTE | 2017-09-02 08:52 | PN ---
Physical Exam: SUBJECTIVE: Patient seen and examined, reports feeling well, denies any tactile fevers, patient is able to flex and the digits of the right hand without any difficulty. OBJECTIVE: patient is a 51 y/o male with a past medical history of hyperlipidemia that was admitted from the emergency department for cellulites of the right hand. Vital Signs Period Temp Pulse Resp BP Sys/Robles Pulse Ox Last 24 Hr 97.6 F-98.0 F 78-84 16-19 106-110/56-61 97-99 GENERAL: The patient is awake, alert, and fully oriented, in no acute distress. HEAD: Normal with no signs of trauma. EYES: PERRL, extraocular movements intact, sclera anicteric, conjunctiva clear. No ptosis. ENT: Ears normal, nares patent, oropharynx clear without exudates, moist mucous membranes. NECK: Trachea midline, full range of motion, supple. LUNGS: Breath sounds equal, clear to auscultation bilaterally, no wheezes, no crackles, no accessory muscle use. HEART: Regular rate and rhythm, S1, S2 without murmur, rub or gallop. ABDOMEN: Soft, nontender, nondistended, normoactive bowel sounds, no guarding, no rebound, no hepatosplenomegaly, no masses. EXTREMITIES: 2+ pulses, warm, well-perfused, no edema. RIGHT LOWER EXTREMITY: + 1 edema, patient is able to flex and extend the digits of the hand without any difficulty, no erythema is noted. scab noted to the right first PCP with point tenderness NEUROLOGICAL: Cranial nerves II through XII grossly intact. Normal speech, gait not observed. PSYCH: Normal mood, normal affect. SKIN: Warm, dry, normal turgor, no rashes or lesions noted Laboratory Results - last 24 hr 09/01/17 09/01/17 09/01/17 08:00 08:00 08:00 WBC 9.9 RBC 5.26 Hgb 16.3 Hct 49.0 MCV 93.1 MCH 30.9 MCHC 33.2 RDW 13.4 Plt Count 150 MPV 9.6 Neutrophils % 64.7 Lymphocytes % 24.6 D Monocytes % 7.7 Eosinophils % 2.8 Basophils % 0.2 Sodium 137 Potassium 4.0 Chloride 102 Carbon Dioxide 25 Anion Gap 10 BUN 19 H Creatinine 0.8 Creat Clearance w eGFR > 60 POC Glucometer Random Glucose 100 Hemoglobin A1c % 6.9 H Calcium 8.7 Total Bilirubin 0.8 AST 22 D ALT 39 D Alkaline Phosphatase 55 Total Protein 5.9 L Albumin 3.6 09/01/17 21:56 WBC RBC Hgb Hct MCV MCH MCHC RDW Plt Count MPV Neutrophils % Lymphocytes % Monocytes % Eosinophils % Basophils % Sodium Potassium Chloride Carbon Dioxide Anion Gap BUN Creatinine Creat Clearance w eGFR POC Glucometer 108 Random Glucose Hemoglobin A1c % Calcium Total Bilirubin AST ALT Alkaline Phosphatase Total Protein Albumin Active Medications Generic Name Dose Route Start Last Admin Trade Name Freq PRN Reason Stop Dose Admin Acetaminophen 1,000 mg 08/30/17 21:38 Tylenol - PO Q6H PRN FEVER OR PAIN Atorvastatin Calcium 10 mg 08/31/17 22:00 09/01/17 21:13 Lipitor - PO 10 mg HS ANNA Administration Gemfibrozil 600 mg 08/31/17 10:00 09/01/17 21:13 Lopid - PO 600 mg BID ANNA Administration Clindamycin Phosphate 600 mg in 50 mls @ 100 mls/hr 08/31/17 00:00 09/02/17 06:01 Cleocin 600 Mg Premix Ivpb - IVPB 100 mls/hr Q6H ANNA Administration Ibuprofen 600 mg 08/30/17 22:49 09/01/17 19:35 Motrin - PO 600 mg Q6H PRN Administration FEVER Lactobacillus Acidophilus 1 tab 08/31/17 15:00 09/01/17 10:20 Bacid - PO 1 tab DAILY ANNA Administration Mupirocin 1 applic 08/31/17 10:00 09/01/17 21:13 Bactroban 2% Ointment - TP 1 applic BID ANNA Administration Microbiology 08/31/17 09:46 Blood - Peripheral Venous Blood Culture - Preliminary NO GROWTH OBTAINED AFTER 48 HOURS, INCUBATION TO CONTINUE FOR 3 DAYS. 08/31/17 09:46 Blood - Peripheral Venous Blood Culture - Preliminary NO GROWTH OBTAINED AFTER 48 HOURS, INCUBATION TO CONTINUE FOR 3 DAYS. Imaging: Right hand xray: some swelling seen on imaging, no fracture or subluxation. Loss of bone density. No foreign body or soft tissue air. ASSESSMENT/PLAN: ID: Right Hand Cellulitis, - erythema a resolved - patient is afebrile, no leukocytosis is noted. - continue clindamycin iv - pending mri r/o osteo - Dr Bal, ID consulted and following - Dr Beltre, hand surgeon consulted and following Endocrine: - hgb 6.9, patient denies a history of niddm, will repeat hgb a1c, if remains elevated, patient will require outpatient follow up with pcp Sushil. Fluids: tolerating PO Electrolytes: monitor Nutrition: regular diet Prophylaxis: DVT: ambulatory GI: deferred Disposition: full code. Visit type - Emergency Visit Emergency Visit: Yes ED Registration Date: 08/30/17 Care time: The patient presented to the Emergency Department on the above date and was hospitalized for further evaluation of their emergent condition. - New Patient This patient is new to me today: Yes Date on this admission: 09/02/17 - Critical Care Critical Care patient: No - Discharge Referral Referred to [facility] Med P.C.: No
[2017-09-02] MEDS ORDERED: PT OWN MED DRAWER 7, Y5N ONE (09:24)
--- NOTE | 2017-09-02 09:29 | PN ---
Progress Note, Physician History of Present Illness: Reports improvement in R UE swelling and erythema No c/o pain No fever/ chills - Current Medication List Current Medications: Active Medications Acetaminophen (Tylenol -) 1,000 mg PO Q6H PRN PRN Reason: FEVER OR PAIN Atorvastatin Calcium (Lipitor -) 10 mg PO HS [facility] Last Admin: 09/01/17 21:13 Dose: 10 mg Gemfibrozil (Lopid -) 600 mg PO BID [facility] Last Admin: 09/01/17 21:13 Dose: 600 mg Clindamycin Phosphate (Cleocin 600 Mg Premix Ivpb -) 600 mg in 50 mls @ 100 mls /hr IVPB Q6H [facility] Last Admin: 09/02/17 06:01 Dose: 100 mls/hr Ibuprofen (Motrin -) 600 mg PO Q6H PRN PRN Reason: FEVER Last Admin: 09/01/17 19:35 Dose: 600 mg Lactobacillus Acidophilus (Bacid -) 1 tab PO DAILY [facility] Last Admin: 09/01/17 10:20 Dose: 1 tab Mupirocin (Bactroban 2% Ointment -) 1 applic TP BID [facility] Last Admin: 09/01/17 21:13 Dose: 1 applic - Objective Vital Signs: Vital Signs Temperature 97.6 F 09/01/17 22:00 Pulse Rate 84 09/01/17 22:00 Respiratory Rate 16 09/02/17 00:00 Blood Pressure 110/56 09/01/17 22:00 O2 Sat by Pulse Oximetry (%) 99 09/02/17 08:02 Constitutional: Yes: No Distress Eyes: Yes: Conjunctiva Clear Cardiovascular: Yes: Regular Rate and Rhythm, S1, S2 Respiratory: Yes: CTA Bilaterally Gastrointestinal: Yes: Normal Bowel Sounds, Soft, Other (+ dry pustules, abdomen ). No: Tenderness Extremities: Yes: Other (minimal swelling, dorsum R hand Erythema has resolved from traced-out margins) Assessment/Plan Cellulitis R hand/ UE MRI pending If negative- po clindamycin 300mg tid x 7d Probiotic
[2017-09-02 09:33] LABS: ALBUMIN 3.8 g/dl (3.5-5.0); ALK PHOS 60 U/L (32-92); ANION GAP 8 (8-16); BILIRUBIN,TOTAL 0.9 mg/dl (0.2-1.0); CALCIUM 8.7 mg/dl (8.4-10.2); CO2 28 mmol/L (22-28); CREATININE 0.9 mg/dl (0.6-1.3); GLUCOSE,RANDOM 117 mg/dl (74-106); SGOT/AST 28 U/L (10-42); SGPT/ALT 53 U/L (10-40); TOT PROT 6.3 g/dl (6.4-8.3)
[2017-09-02] MEDS: GEMFIBROZIL 600 MG TABLET (FP) PO SCH (09:43)
[2017-09-02] MEDS: MUPIROCIN 2% TOPICAL OINTMENT 22 GM TUBE TP SCH (09:44)
[2017-09-02] MEDS: LACTOBACILLUS ACIDOPHILUS 1 EACH TAB (FP) PO SCH (09:44)
[2017-09-02 10:14] LABS: BASOPHIL 1.4 % (0-2.0); MCHC 33.8 g/dl (32.0-35.9); MEAN CELL VOLUME 91.8 fl (80-96); MEAN PLT VOLUME 9.6 fl (7.5-11.1); NEUTROPHILS 71.7 % (42.8-82.8); PLATELET COUNT 156 K/MM3 (134-434); RDW 13.1 % (11.9-15.9); WHITE BLOOD COUNT 9.6 K/mm3 (4.0-10.8)
[2017-09-02 14:45] VITALS: BP 111/71; PULSE 86; TEMP 98.6
--- NOTE | 2017-09-03 08:00 | DS ---
Physical Exam: SUBJECTIVE: Patient seen and examined, reports feeling well, denies any parasthesia to the right hand, patient is able to flex and extend the digits of the hand without any difficulty, OBJECTIVE:This is a 51 year old male with a past medical history of hyperlipidemia who presented to the ED with a 5-7 day history of redness, pain and swelling to his right hand. He states that it started sometime [place] or over the weekend. Initially there was some swelling to the area above the 3rd and 4th metacarpal space but it spread towards the ulnar aspect of the hand and a blister appeared on the side of the hand. The swelling and redness continued to get worse and finally today the pain became unbearable and he presented to the ED. ER course was notable for: (1) WBC 18.0 Vital Signs Period Temp Pulse Resp BP Sys/Robles Pulse Ox Last 24 Hr 98.6 F 86 19 111/71 97-99 PHYSICAL EXAM GENERAL: The patient is awake, alert, and fully oriented, in no acute distress. HEAD: Normal with no signs of trauma. EYES: PERRL, extraocular movements intact, sclera anicteric, conjunctiva clear. No ptosis. ENT: Ears normal, nares patent, oropharynx clear without exudates, moist mucous membranes. NECK: Trachea midline, full range of motion, supple. LUNGS: Breath sounds equal, clear to auscultation bilaterally, no wheezes, no crackles, no accessory muscle use. HEART: Regular rate and rhythm, S1, S2 without murmur, rub or gallop. ABDOMEN: Soft, nontender, nondistended, normoactive bowel sounds, no guarding, no rebound, no hepatosplenomegaly, no masses. EXTREMITIES: 2+ pulses, warm, well-perfused, no edema. RIGHT LOWER EXTREMITY: + 1 edema, patient is able to flex and extend the digits of the hand without any difficulty, no erythema is noted. scab noted to the right first PCP with point tenderness NEUROLOGICAL: Cranial nerves II through XII grossly intact. Normal speech, gait not observed. PSYCH: Normal mood, normal affect. SKIN: Warm, dry, normal turgor, no rashes or lesions noted LABS Laboratory Results - last 24 hr 09/02/17 09/02/17 09/02/17 07:40 07:40 11:41 WBC 9.6 RBC 5.42 Hgb 16.8 Hct 49.8 H MCV 91.8 MCH 31.0 MCHC 33.8 RDW 13.1 Plt Count 156 MPV 9.6 Neutrophils % 71.7 Lymphocytes % 17.2 D Monocytes % 6.7 Eosinophils % 3.0 Basophils % 1.4 D Sodium 136 Potassium 4.0 Chloride 100 Carbon Dioxide 28 Anion Gap 8 BUN 16 Creatinine 0.9 Creat Clearance w eGFR > 60 POC Glucometer 77 Random Glucose 117 H Calcium 8.7 Total Bilirubin 0.9 AST 28 D ALT 53 H D Alkaline Phosphatase 60 Total Protein 6.3 L Albumin 3.8 Microbiology 08/31/17 09:46 Blood - Peripheral Venous Blood Culture - Preliminary NO GROWTH OBTAINED AFTER 48 HOURS, INCUBATION TO CONTINUE FOR 3 DAYS. 08/31/17 09:46 Blood - Peripheral Venous Blood Culture - Preliminary NO GROWTH OBTAINED AFTER 48 HOURS, INCUBATION TO CONTINUE FOR 3 DAYS. Imaging: Right hand xray: some swelling seen on imaging, no fracture or subluxation. Loss of bone density. No foreign body or soft tissue air. HOSPITAL COURSE: Patient was admitted from the emergency department for right Hand Cellulitis , erythema is resolved, patient is afebrile, no leukocytosis is noted, he was treated with clindamycin iv throughout admission, mri of the right hand, marked soft tissue edema, no evidence of osteomyelitis is noted, Dr Bal, ID consulted and Dr Beltre, hand surgeon consulted and followed patient throughout admission. Moreover, patient was noted to have elevated hgb a1c of 6.9 during this admission, patient denies a past history of niddm. he will require outpatient follow up with pcp. Date of Admission:08/30/17 Date of Discharge: 09/03/17 Minutes to complete discharge: 45 Discharge Summary Reason For Visit: CELLULITIS OF RIGHT HAND Condition: Improved - Instructions Diet, Activity, Other Instructions: You have been seen by by Dr. Yared Alvarez of [facility]. Activity: Resume your usual activities gradually, Do home therapy regimen as prescribed. Pain: For pain, you may use and alternate Tylenol (acetaminophen) and/or ibuprofen every 6 hours each as needed. Take medications as prescribed or indicated on the labeling. Follow-up: Call Dr. Alvarez' office at [phone] to make your appointment ( Saturday 1-2 weeks after surgery as advised). Clinic is held in the Diagnostic Center on the first floor of [facility]. Call the office if you have: * increasing pain not responsive to pain medication * fever of 101F or higher * unusual or increasing bleeding or drainage from wounds * increasing redness or swelling at wound sites Also, see your primary medical doctor within 1-2 weeks. Referrals: Yared Alvarez MD [Staff Physician] - Disposition: HOME - Home Medications Comprehensive Discharge Medication List: Ambulatory Orders Gemfibrozil [Lopid] 600 mg PO BID 08/30/17 Simvastatin 20 mg PO DAILY 08/30/17 Clindamycin [Cleocin -] 300 mg PO TID #21 capsule 09/02/17 This patient is new to me today: No Emergency Visit: Yes ED Registration Date: 08/30/17 Care time: The patient presented to the Emergency Department on the above date and was hospitalized for further evaluation of their emergent condition. Critical Care patient: No - Discharge Referral Referred to [facility] Med P.C.: No
== END 2017-09-02 16:20 | disposition home or self-care (01) ==
LOC: FER 17:21 → FM/S 20:27
PROVIDERS: ADMIT Internal Medicine; ATTEND Nurse Practitioner Family
PROC: 3E03329 Introduction of Other Anti-infective into Peripheral Vein, Percutaneous Approach (ICD-10-PCS; principal; 2017-08-30)
PROC: 3E0337Z Introduction of Electrolytic and Water Balance Substance into Peripheral Vein, Percutaneous Approach (ICD-10-PCS; 2017-08-30)
DX: L03.113 Cellulitis of right upper limb (principal); E78.5 Hyperlipidemia, unspecified; E66.9 Obesity, unspecified; M77.8 Other enthesopathies, not elsewhere classified; L02.511 Cutaneous abscess of right hand; Z87.891 Personal history of nicotine dependence; Z68.39 Body mass index [BMI] 39.0-39.9, adult
CPT/HCPCS: 36415; 71020-TC; 73130-TC-RT; 73218-TC-RT; 80048; 80053; 83036; 83605; 83735; 84100; 85025; 87040; 90715; 93005; 96365; 97161-GP; 99283-25; G0378